=== PATIENT | female | born 2000 | race Caucasian/White ===

== ENCOUNTER 2023-04-22 07:43 | Inpatient (IN) ==
[2023-04-22] MEDS ORDERED: PENICILLIN G POTASSIUM 6 MU in DEXTROSE 5% 250 ML IV STA (08:01)
[2023-04-22] MEDS ORDERED: LIDOCAINE 1% LOCAL 20 ML VIAL INFIL PRN (08:01)
[2023-04-22] MEDS ORDERED: OXYTOCIN 30 UNITS/500 ML BAG IV PRN ×2 (08:01)
--- NOTE | 2023-04-22 08:16 | History & Physical Report ---
Date of Service April 22, 2023 Assessment & Plan (1) Encounter for induction of labor: Plan: Siegel bulb fell out last night at 2230. Not currently having any contractions at this time. We will admit to labor and delivery. Start Pitocin at 1 increase by 2 for induction of labor. Started on lactated Ringer's at 125 mL/hour. Anesthesia consulted for epidural. (2) Obesity affecting , antepartum: Plan: We will monitor vital signs throughout delivery. (3) Carrier of group B Streptococcus: Plan: Started on penicillin G. (4) Hypothyroidism during : Plan: On levothyroxine 137 mcg. We will hold and restart after delivery. (5) Idiopathic intracranial hypertension: Plan: On acetazolamide 500 mg twice daily Saw neurology on 04/16/2023, okay for or natural , patient can receive fluids and have a epidural if wanted. No current headaches. We will continue to monitor. Admission and Anticipated Discharge Date Admission Date: April 22, 2023 History of Present Illness Chief Complaint: Induction of labor Primary Care Provider: Sara Celestin, 23 y/o at 39wk 1/7d confirmed via LMP. Here for induction. Complications with this include obesity, hypothyroidism, GBS positive, and intracranial hypertension. Has been attending OB appointments regularly. Currently taking vitamin, levothyroxine, and acetazolamide. Patient had a Siegel bulb placed yesterday. Fell out around 2330 last night. Contractions: none, some "tightening" but no pain. Fluid or Blood loss: none Movement: active Labs - Blood type: A+ - Antibody screen: Negative - HCT/H.2/13.9 - Plt: 286 - Rubella: Immune - VDRL/RPR: Nonreactive - Gonorrhea: Negative - Chlamydia: Negative - HIV: Negative - HbSAg: Negative - GBS: Positive - Glucose tolerance x 2 Allergies Allergy/AdvReac Type Severity Reaction Status Date / Time sulfamethoxazole AdvReac Unknown rash Verified 04/22/23 09:35 [From Bactrim] trimethoprim [From Bactrim] AdvReac Unknown rash Verified 04/22/23 09:35 Home Medications Medication Instructions Recorded Confirmed Type acetazolamide 500 mg 500 mg PO BID 08/14/22 04/22/23 History capsule,extended release prenat.vits,korina,sbw-zurw-qtoia 1 tab PO DAILY 08/14/22 04/22/23 History levothyroxine 137 mcg tablet 137 mcg PO DAILY #30 tabs 12/07/22 04/22/23 Rx Patient History Medical History Headache 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 Idiopathic intracranial hypertension Equivocal 01/2022 CSF findings, recommendation to treat as if pseudotumor per 02/09/22 neurology note (pt on Diomox) Morbid obesity Spinal headache Hx headache after spinal tap (done for idiopathic intracranial hypertension evaluation)- headache lasted for week after spinal tap (did not have medical intervention/blood patch) > had subsequent spinal tap without issue Surgical History H/O wisdom tooth extraction Family History Mother Depression Ilya's thyroiditis Graves disease Father Hypertension Brother Thyroid disorder Social History Smoking Status: Never smoker Second Hand Exposure: No; Do You Dip or Chew Tobacco: No; Tobacco Cessation Education Requested by Patient: No Hx Alcohol Use: No Hx Substance Use: No Preferred Language: Vietnamese Communication Ability: Effective Contact Worker Required: No Beliefs That Will Affect Care: None marital status: marital status details: Ruddy (28) [phone] Current Living Situation: Spouse Current Living Situation Comment: [facility]- current occupational status: employed current occupation: customer service How many Children do You have: 0 Other Information That Helps Us Care for You: No Feels Safe at Home: Yes Safety Concerns: Feels Safe At This Time Do you think of yourself as: straight/heterosexual Gender Identity: Female Assistive Devices: Glasses Review of Systems Denies fever, chills, sweats Denies shortness of breath, difficulty breathing, chest pain, palpitations, chest pressure. Denies breast pain. Denies dysuria. Denies headache or changes in vision. Physical Exam Physical Exam: General: Alert, oriented. No acute distress. Cardiac: Regular rate and rhythm, no murmurs/rubs/gallops. Respiratory: Clear to auscultation bilaterally a/p, no wheezes/rales/rhonchi. No increased work of breathing. Symmetrical chest rise. No respiratory distress. Abdomen: Gravid; categ 1 FHTs; Position: Cephalic presentation Pelvic: Dilation 3cm; Effacement 50; Station -[address] Guzman Lower Extremities: No lower extremity edema or swelling. No deep calf pain. Ho man's negative bilaterally Results & Data Laboratory Results 04/22/23 08:16 Supervising Physician Co-Signing Physician Notes Resident Physician Supervision Note: I interviewed and examined the patient. Discussed with Dr. Velarde and agree with findings and plan as documented in the note. Any exceptions or clarifications are listed here: 23yowf with iup at 39 weeks here for induction secondary to obesity. has essentially been uncomplicated. Testing reassuring. Last ultrasound efw 61%, ac 91%. Plan pit and pcn G. arom and epidural as indicated. fetus category one. anticipate . Documented By: Siri Guzman MD, FACOG Resident Activity Tracking Resident Involvement: Resident Care Provided Care Provided: OB Delivery
[2023-04-22] MEDS: LACTATED RINGER'S 1,000 ML IV PRN ×3 (08:20→19:24)
[2023-04-22 08:30] LABS: Hematocrit (blood only) 33.3 % (37.0-47.0); Hemoglobin 11.8 g/dl (12.0-16.0); Mean Corpuscular Hemoglobin 31.8 pg (25.0-34.0); Mean Corpuscular Hgb Conc 35.4 g/dL (32.0-36.0); Mean Corpuscular Volume 89.8 fL (80.0-100.0); Mean Platelet Volume 10.5 fL (9.4-12.4); Platelet Count 196 K/uL (130-400); RDW Coefficient of Variation 14.6 % (11.5-14.5); RDW Standard Deviation 46.8 fL (36.4-46.3); Red Blood Count 3.71 M/uL (4.20-5.40); White Blood Count 11.65 K/ul (4.8-10.8)
--- NOTE | 2023-04-22 14:21 | Labor Progress Brief Note ---
Date of Service April 22, 2023 Subjective feeling contractions, not uncomfortable Assessment & Plan (1) Encounter for induction of labor: (2) Obesity affecting , antepartum: (3) Encounter for pre-operative examination: Plan continue current management. fetus category one. anticipate . Admission and Anticipated Discharge Date Admission Date: April 22, 2023 Physical Exam Constitutional: WD/WN, vitals as above Psychiatric: A+Ox3, euthymic affect Genitourinary: cx--3/75/-2/post arom--clear toco--q2-3min, pit at 15 efm--130s with mod variability, accels to 160s, no decels Results & Data Vital Signs (Past 12 Hours) Vital Signs Temp Pulse Resp BP 04/22/23 13:57 89 125/71 04/22/23 13:43 89 123/68 04/22/23 13:27 95 H 125/70 04/22/23 13:12 82 122/70 04/22/23 12:57 96 H 123/66 04/22/23 12:41 99 H 121/82 04/22/23 12:30 18 04/22/23 12:30 37.0 C 18 04/22/23 12:27 97 H 126/83 04/22/23 12:12 96 H 130/83 04/22/23 11:43 87 140/77 04/22/23 11:27 78 127/81 04/22/23 11:12 88 126/79 04/22/23 10:58 92 H 132/82 04/22/23 10:42 89 133/81 04/22/23 10:27 85 121/71 04/22/23 10:13 87 115/76 04/22/23 09:56 92 H 136/80 04/22/23 09:42 93 H 132/87 04/22/23 08:29 37.3 C 101 H 18 123/76 04/22/23 08:26 37.3 C 101 H 18 123/76 Coding Level of Care Code None Diagnoses Encounter for induction of labor Z34.90 Obesity affecting , antepartum O99.210 Encounter for pre-operative examination Z01.818
[2023-04-22] MEDS: PENICILLIN G POTASSIUM 3 MU in DEXTROSE 5% 100 ML IV PRN ×3 (14:23→22:23)
[2023-04-22] MEDS ORDERED: BUPIVACAINE 0.25% PF 30 ML VIAL ONE (15:27)
[2023-04-22] MEDS ORDERED: ePHEDrine sulfate 50 MG/ML AMP ONE (15:27)
[2023-04-22] MEDS ORDERED: LIDOCAINE 2%/EPINEPHRINE 1:200,000 20 ML PF ONE (15:27)
[2023-04-22] MEDS ORDERED: fentaNYL citrate PF 100 MCG/2 ML VIAL ONE (15:27)
[2023-04-22] MEDS ORDERED: SODIUM CHLORIDE 0.9% PF INJ 10 ML VIAL ONE (15:27)
[2023-04-22] MEDS ORDERED: fentaNYL 2MCG/ML ROPIVACAINE 1.25MG/ML 100 ML BAG EPI ONE (15:28)
[2023-04-22] MEDS ORDERED: LIDOCAINE 2% MPF LOCAL 5 ML VIAL EPI PRN (15:31)
[2023-04-22] MEDS ORDERED: fentaNYL citrate PF 100 MCG/2 ML VIAL EPI STA (15:31)
[2023-04-22] MEDS ORDERED: ePHEDrine sulfate 50 MG/ML AMP IV PRN (15:31)
[2023-04-22] MEDS ORDERED: LIDOCAINE 2%/EPINEPHRINE 1:200,000 20 ML PF EPI STA (15:31)
[2023-04-22] MEDS ORDERED: BUPIVACAINE 0.25% PF 30 ML VIAL EPI PRN (15:31)
[2023-04-22] MEDS ORDERED: fentaNYL 2MCG/ML ROPIVACAINE 1.25MG/ML 100 ML BAG EPI PRN (15:31)
[2023-04-22] MEDS ORDERED: NALOXONE HCL 0.4 MG/1 ML VIAL/CARP IV PRN (15:31)
[2023-04-22] MEDS ORDERED: SODIUM CHLORIDE 0.9% PF INJ 10 ML VIAL EPI PRN (15:31)
[2023-04-22] MEDS ORDERED: SODIUM CHLORIDE 0.9% PF INJ 10 ML VIAL EPI STA (15:31)
[2023-04-22] MEDS ORDERED: NALBUPHINE HCL INJ 10 MG/ML AMP IV PRN (15:31)
[2023-04-22] MEDS ORDERED: BUPIVACAINE 0.25% PF 30 ML VIAL EPI STA (15:31)
[2023-04-22] MEDS ORDERED: ONDANSETRON INJ 2 MG/ML 2 ML VIAL IV PRN (15:31)
[2023-04-22] MEDS ORDERED: ROPIVACAINE 0.5% PF 5 MG/ML 20 ML VIAL EPI PRN (15:31)
[2023-04-22] MEDS ORDERED: NALOXONE HCL 1 MG in SODIUM CHLORIDE 0.9% 1000ML 1,000 ML IV PRN (15:31)
[2023-04-22] MEDS ORDERED: diphenhydrAMINE 50 MG/ML VIAL IV PRN (15:31)
[2023-04-22] MEDS ORDERED: fentaNYL citrate PF 100 MCG/2 ML VIAL EPI PRN (15:31)
--- NOTE | 2023-04-22 15:34 | Anesthesiology Consultation ---
Date of Service April 22, 2023 Assessment & Plan Chart Review Chart Review: Patient NOT seen in Pre Admission Testing and Acceptable Risk for Labor Epidural Consults Requested none History Height/Weight Height: 5 ft 10 in Weight: 137.438 kg Allergies Allergy/AdvReac Type Severity Reaction Status Date / Time sulfamethoxazole AdvReac Unknown rash Verified 04/22/23 09:35 [From Bactrim] trimethoprim [From Bactrim] AdvReac Unknown rash Verified 04/22/23 09:35 Medications Home Medications Medication Instructions Recorded Confirmed Last Taken acetazolamide 500 mg 500 mg PO BID 08/14/22 04/22/23 04/22/23 06:00 capsule,extended release prenat.vits,korina,wjo-uxmr-henta 1 tab PO DAILY 08/14/22 04/22/23 04/22/23 06:00 levothyroxine 137 mcg tablet 137 mcg PO DAILY #30 tabs 12/07/22 04/22/23 04/22/23 06:00 Active Medications Generic Name Dose Route Start Last Admin Trade Name Freq PRN Reason Stop Dose Admin Acetazolamide 500 mg 04/23/23 09:00 04/24/23 16:24 Acetazolamide 250 Mg Tab PO 05/23/23 08:59 500 mg BID17 LEMUEL Administration Benzocaine 1 appln 04/23/23 05:41 04/23/23 07:48 Benzocaine 20% Aer Spr 82.5 Gm Can EXT 05/23/23 05:40 82.5 appln PRN PRN Administration Perineal Discomfort Calcium Carbonate 500 mg 04/22/23 20:21 04/23/23 06:06 Calcium Carbonate 500 Mg Chewable Tab PO 05/22/23 20:20 500 mg Q4HWA PRN Administration Indigestion Docusate Sodium 100 mg 04/23/23 08:00 04/24/23 21:21 Docusate Sodium 100 Mg Cap PO 05/23/23 07:59 100 mg DAILY@ LEMUEL Administration Famotidine 20 mg 04/23/23 10:00 04/24/23 10:28 Famotidine 20 Mg Tab PO 05/23/23 09:59 20 mg QAM LEMUEL Administration Penicillin G Potassium 3 mu/ 106 mls @ 100 mls/hr 04/22/23 11:02 04/24/23 22:05 Dextrose IV 05/02/23 11:01 Infused Q4H PRN Infusion GBS(+) Until Delivery Oxytocin 30 units in 500 mls @ 333.333 mls/hr 04/23/23 05:41 04/23/23 05:25 Pitocin IV 05/23/23 05:40 59.94 units/hr .Q1H30M PRN 999 mls/hr Bleeding Control Administration Protocol 20 UNITS/HR Ibuprofen 600 mg 04/23/23 05:41 04/24/23 21:21 Ibuprofen 600 Mg Tab PO 05/23/23 05:40 600 mg Q4H PRN Administration Pain/FOSTER/Cramping/Fever Levothyroxine Sodium 137 mcg 04/23/23 06:30 04/25/23 05:36 Levothyroxine Sodium 137 Mcg Tablet PO 05/23/23 06:29 137 mcg DAILYBB LEMUEL Administration Prenat Multivit/Parker/Iron/Folic Ac 1 tab 04/23/23 08:00 04/24/23 07:38 Vitamin 1 Tab PO 05/23/23 07:59 1 tab DAILY@08 LEMUEL Administration Past Medical History Medical History Headache 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 Idiopathic intracranial hypertension Equivocal 01/2022 CSF findings, recommendation to treat as if pseudotumor per 02/09/22 neurology note (pt on Diomox) Morbid obesity Spinal headache Hx headache after spinal tap (done for idiopathic intracranial hypertension evaluation)- headache lasted for week after spinal tap (did not have medical intervention/blood patch) > had subsequent spinal tap without issue Exercise / Class Metabolic Activity II 4-5 Yardwork/Stairs/Walk up hill Past Family History Family History Mother Depression Ilya's thyroiditis Graves disease Father Hypertension Brother Thyroid disorder Past Surgical History Surgical History H/O wisdom tooth extraction Social History Smoking Status: Never smoker Do You Dip or Chew Tobacco: No Hx Alcohol Use: No Alcohol type: wine alcohol intake frequency: holidays/special occasions only Hx Substance Use: No Physical Exam Vital Signs Last Vital Signs Temp 36.7 C 06/29/23 04:30 Pulse 71 04/25/23 04:30 Resp 20 04/25/23 04:30 BP 130/85 04/25/23 04:30 Pulse Ox 99 04/24/23 21:00 O2 Del Method Room Air 04/25/23 04:30 Testing Laboratory Results 04/24/23 06:21 Blood Type A Positive 04/22/23 09:25 Antibody Screen NEGATIVE 04/22/23 09:25
--- NOTE | 2023-04-22 18:07 | Labor Progress Brief Note ---
Date of Service April 22, 2023 Subjective comfortable Assessment & Plan (1) Encounter for induction of labor: (2) 39 weeks gestation of : Plan continue current management. fetus category one. Admission and Anticipated Discharge Date Admission Date: April 22, 2023 Physical Exam Physical Exam: cx--4-5/75/-2 toco--q2-4min, pit at 17 efm--130s with mod variability, accels present, no decels Results & Data Vital Signs (Past 12 Hours) Vital Signs Temp Pulse Resp BP Pulse Ox 04/22/23 18:02 96 H 99 04/22/23 18:01 84 129/61 04/22/23 17:59 18 04/22/23 17:59 18 04/22/23 17:57 86 98 04/22/23 17:52 91 H 98 04/22/23 17:47 89 99 04/22/23 17:48 90 143/74 H 04/22/23 17:42 89 100 04/22/23 17:37 82 98 04/22/23 17:32 90 99 04/22/23 17:30 93 H 115/56 L 04/22/23 17:27 94 H 98 04/22/23 17:22 101 H 99 04/22/23 17:17 98 04/22/23 17:17 98 H 04/22/23 17:17 93 H 115/57 L 04/22/23 17:12 88 98 04/22/23 17:07 85 97 04/22/23 17:02 96 H 99 04/22/23 17:01 36.6 C 91 H 120/59 L 04/22/23 17:00 16 04/22/23 17:00 16 04/22/23 16:57 95 H 98 04/22/23 16:52 98 H 97 04/22/23 16:47 86 97 04/22/23 16:46 94 H 120/58 L 04/22/23 16:42 72 96 04/22/23 16:37 77 97 04/22/23 16:32 86 97 04/22/23 16:27 84 96 04/22/23 16:24 99 H 125/61 04/22/23 16:22 107 H 98 04/22/23 16:21 93 H 127/62 04/22/23 16:17 101 H 97 04/22/23 16:12 82 98 04/22/23 16:13 88 128/60 04/22/23 16:11 89 132/63 04/22/23 16:09 96 H 123/55 L 04/22/23 16:07 94 H 137/62 04/22/23 16:05 93 H 16 134/59 L 04/22/23 16:03 99 H 140/60 04/22/23 16:01 93 H 134/66 04/22/23 15:58 108 H 146/85 H 04/22/23 15:43 103 H 134/80 04/22/23 15:26 85 136/73 04/22/23 14:58 36.8 C 78 18 134/72 04/22/23 14:42 90 129/76 04/22/23 14:20 36.7 C 04/22/23 14:28 83 130/81 04/22/23 13:57 89 125/71 04/22/23 13:43 89 123/68 04/22/23 13:27 95 H 125/70 04/22/23 13:12 82 122/70 04/22/23 12:57 96 H 123/66 04/22/23 12:41 99 H 121/82 04/22/23 12:30 18 04/22/23 12:30 37.0 C 18 04/22/23 12:27 97 H 126/83 04/22/23 12:12 96 H 130/83 04/22/23 11:43 87 140/77 04/22/23 11:27 78 127/81 04/22/23 11:12 88 126/79 04/22/23 10:58 92 H 132/82 04/22/23 10:42 89 133/81 04/22/23 10:27 85 121/71 04/22/23 10:13 87 115/76 04/22/23 09:56 92 H 136/80 04/22/23 09:42 93 H 132/87 04/22/23 08:29 37.3 C 101 H 18 123/76 04/22/23 08:26 37.3 C 101 H 18 123/76 Coding Level of Care Code None Diagnoses Encounter for induction of labor Z34.90 39 weeks gestation of Z3A.39
--- NOTE | 2023-04-22 19:58 | Labor Progress Brief Note ---
Date of Service April 22, 2023 Subjective comfortable Assessment & Plan (1) Encounter for induction of labor: (2) 39 weeks gestation of : Plan iupc placed. monitor mvus , aim for >200. increase pit to max 30 Admission and Anticipated Discharge Date Admission Date: April 22, 2023 Physical Exam Physical Exam: cx--4/75/-2 toco--q3-5, pit at 20 efm--135 with mod variability, accels present, no decels, +scalp stim Results & Data Vital Signs (Past 12 Hours) Vital Signs Temp Pulse Resp BP Pulse Ox 04/22/23 19:52 91 H 100 04/22/23 19:47 105 H 99 04/22/23 19:45 90 130/61 04/22/23 19:42 88 98 04/22/23 19:37 84 99 04/22/23 19:32 87 99 04/22/23 19:30 85 129/61 04/22/23 19:27 87 100 04/22/23 19:22 94 H 99 04/22/23 19:15 16 04/22/23 19:15 36.8 C 16 04/22/23 19:17 93 H 98 04/22/23 19:16 85 125/60 04/22/23 19:12 90 99 04/22/23 19:07 100 H 99 04/22/23 19:02 91 H 98 04/22/23 19:01 92 H 129/69 04/22/23 18:57 88 100 04/22/23 18:52 90 100 04/22/23 18:47 87 99 04/22/23 18:46 80 122/56 L 04/22/23 18:42 88 100 04/22/23 18:37 86 98 04/22/23 18:32 99 04/22/23 18:32 80 04/22/23 18:32 86 131/61 04/22/23 18:27 79 99 04/22/23 18:22 81 100 04/22/23 18:17 94 H 99 04/22/23 18:16 93 H 127/79 04/22/23 18:12 85 99 04/22/23 18:07 80 99 04/22/23 18:02 96 H 99 04/22/23 18:01 84 16 129/61 04/22/23 17:59 18 04/22/23 17:59 18 04/22/23 17:57 86 98 04/22/23 17:52 91 H 98 04/22/23 17:47 89 99 04/22/23 17:48 90 143/74 H 04/22/23 17:42 89 100 04/22/23 17:37 82 98 04/22/23 17:32 90 99 04/22/23 17:30 93 H 115/56 L 04/22/23 17:27 94 H 98 04/22/23 17:22 101 H 99 04/22/23 17:17 98 04/22/23 17:17 98 H 04/22/23 17:17 93 H 115/57 L 04/22/23 17:12 88 98 04/22/23 17:07 85 97 04/22/23 17:02 96 H 99 04/22/23 17:01 36.6 C 91 H 120/59 L 04/22/23 17:00 16 04/22/23 17:00 16 04/22/23 16:57 95 H 98 04/22/23 16:52 98 H 97 04/22/23 16:47 86 97 04/22/23 16:46 94 H 120/58 L 04/22/23 16:42 72 96 04/22/23 16:37 77 97 04/22/23 16:32 86 97 04/22/23 16:27 84 96 04/22/23 16:24 99 H 125/61 04/22/23 16:22 107 H 98 04/22/23 16:21 93 H 127/62 04/22/23 16:17 101 H 97 04/22/23 16:12 82 98 04/22/23 16:13 88 128/60 04/22/23 16:11 89 132/63 04/22/23 16:09 96 H 123/55 L 04/22/23 16:07 94 H 137/62 04/22/23 16:05 93 H 16 134/59 L 04/22/23 16:03 99 H 140/60 04/22/23 16:01 93 H 134/66 04/22/23 15:58 108 H 146/85 H 04/22/23 15:43 103 H 134/80 04/22/23 15:26 85 136/73 04/22/23 14:58 36.8 C 78 18 134/72 04/22/23 14:42 90 129/76 04/22/23 14:20 36.7 C 04/22/23 14:28 83 130/81 04/22/23 13:57 89 125/71 04/22/23 13:43 89 123/68 04/22/23 13:27 95 H 125/70 04/22/23 13:12 82 122/70 04/22/23 12:57 96 H 123/66 04/22/23 12:41 99 H 121/82 04/22/23 12:30 18 04/22/23 12:30 37.0 C 18 04/22/23 12:27 97 H 126/83 04/22/23 12:12 96 H 130/83 04/22/23 11:43 87 140/77 04/22/23 11:27 78 127/81 04/22/23 11:12 88 126/79 04/22/23 10:58 92 H 132/82 04/22/23 10:42 89 133/81 04/22/23 10:27 85 121/71 04/22/23 10:13 87 115/76 04/22/23 09:56 92 H 136/80 04/22/23 09:42 93 H 132/87 04/22/23 08:29 37.3 C 101 H 18 123/76 04/22/23 08:26 37.3 C 101 H 18 123/76 Coding Level of Care Code None Diagnoses Encounter for induction of labor Z34.90 39 weeks gestation of Z3A.39
[2023-04-22] MEDS: CALCIUM CARBONATE 500 MG CHEWABLE TAB PO PRN (21:23)
--- NOTE | 2023-04-23 00:52 | Labor Progress Brief Note ---
Date of Service April 23, 2023 Subjective comfortable Assessment & Plan (1) Encounter for induction of labor: Plan continue current management. fetus category one. making change and mvus for the most part adequate. Admission and Anticipated Discharge Date Admission Date: April 22, 2023 Physical Exam Physical Exam: cx--5-6/90/-2 toco--q2-3min, pit at 29, for the most part the contractions are >200 efm--140s with mod varaibility, accels to 160s, no decels Results & Data Vital Signs (Past 12 Hours) Vital Signs Temp Pulse Resp BP Pulse Ox 04/23/23 00:47 91 H 100 04/23/23 00:45 93 H 140/73 04/23/23 00:42 87 99 04/23/23 00:37 78 99 04/23/23 00:32 102 H 99 04/23/23 00:30 89 134/70 04/23/23 00:27 82 98 04/23/23 00:22 86 97 04/23/23 00:17 81 97 04/23/23 00:15 86 130/64 04/23/23 00:12 78 98 04/23/23 00:07 84 97 04/23/23 00:02 88 98 04/23/23 00:01 94 H 138/72 04/22/23 23:57 92 H 98 04/22/23 23:52 91 H 99 04/22/23 23:47 99 04/22/23 23:47 102 H 04/22/23 23:47 100 H 138/80 04/22/23 23:42 86 98 04/22/23 23:37 94 H 98 04/22/23 23:30 16 04/22/23 23:30 36.9 C 16 04/22/23 23:32 95 H 100 04/22/23 23:31 100 H 142/69 H 04/22/23 23:27 129 H 99 04/22/23 23:22 94 H 99 04/22/23 23:17 89 144/72 H 100 04/22/23 23:12 100 H 100 04/22/23 23:07 99 H 100 04/22/23 23:02 91 H 100 04/22/23 23:01 90 139/80 04/22/23 22:57 94 H 100 04/22/23 22:52 91 H 100 04/22/23 22:47 101 H 139/83 100 04/22/23 22:42 92 H 100 04/22/23 22:37 98 H 100 04/22/23 22:32 91 H 99 04/22/23 22:30 107 H 142/79 H 04/22/23 22:27 96 H 100 04/22/23 22:22 88 99 04/22/23 22:17 92 H 139/87 100 04/22/23 22:12 82 98 04/22/23 22:07 90 99 04/22/23 22:02 94 H 100 04/22/23 22:01 90 131/79 04/22/23 21:57 91 H 100 04/22/23 21:55 16 04/22/23 21:55 36.7 C 16 04/22/23 21:52 85 99 04/22/23 21:47 92 H 100 04/22/23 21:45 90 134/63 04/22/23 21:42 95 H 100 04/22/23 21:37 94 H 99 04/22/23 21:32 91 H 99 04/22/23 21:31 87 131/74 04/22/23 21:27 86 100 04/22/23 21:22 83 100 04/22/23 21:18 88 139/68 04/22/23 21:17 88 100 04/22/23 21:12 87 100 04/22/23 21:07 85 100 04/22/23 21:02 79 100 04/22/23 21:00 76 111/55 L 04/22/23 20:57 80 100 04/22/23 20:52 71 99 04/22/23 20:47 77 98 04/22/23 20:46 74 126/58 L 04/22/23 20:42 78 98 04/22/23 20:37 71 98 04/22/23 20:32 73 98 04/22/23 20:31 75 129/58 L 04/22/23 20:27 75 98 04/22/23 20:22 81 99 04/22/23 20:17 85 121/62 99 04/22/23 20:12 74 97 04/22/23 20:07 72 98 04/22/23 20:02 77 98 04/22/23 20:01 75 126/59 L 04/22/23 19:57 85 100 04/22/23 19:52 91 H 100 04/22/23 19:47 105 H 99 04/22/23 19:45 90 130/61 04/22/23 19:42 88 98 04/22/23 19:37 84 99 04/22/23 19:32 87 99 04/22/23 19:30 85 129/61 04/22/23 19:27 87 100 04/22/23 19:22 94 H 99 04/22/23 19:15 16 04/22/23 19:15 36.8 C 16 04/22/23 19:17 93 H 98 04/22/23 19:16 85 125/60 04/22/23 19:12 90 99 04/22/23 19:07 100 H 99 04/22/23 19:02 91 H 98 04/22/23 19:01 92 H 129/69 04/22/23 18:57 88 100 04/22/23 18:52 90 100 04/22/23 18:47 87 99 04/22/23 18:46 80 122/56 L 04/22/23 18:42 88 100 04/22/23 18:37 86 98 04/22/23 18:32 99 04/22/23 18:32 80 04/22/23 18:32 86 131/61 04/22/23 18:27 79 99 04/22/23 18:22 81 100 04/22/23 18:17 94 H 99 04/22/23 18:16 93 H 127/79 04/22/23 18:12 85 99 04/22/23 18:07 80 99 04/22/23 18:02 96 H 99 04/22/23 18:01 84 16 129/61 04/22/23 17:59 18 04/22/23 17:59 18 04/22/23 17:57 86 98 04/22/23 17:52 91 H 98 04/22/23 17:47 89 99 04/22/23 17:48 90 143/74 H 04/22/23 17:42 89 100 04/22/23 17:37 82 98 04/22/23 17:32 90 99 04/22/23 17:30 93 H 115/56 L 04/22/23 17:27 94 H 98 04/22/23 17:22 101 H 99 04/22/23 17:17 98 04/22/23 17:17 98 H 04/22/23 17:17 93 H 115/57 L 04/22/23 17:12 88 98 04/22/23 17:07 85 97 04/22/23 17:02 96 H 99 04/22/23 17:01 36.6 C 91 H 120/59 L 04/22/23 17:00 16 04/22/23 17:00 16 04/22/23 16:57 95 H 98 04/22/23 16:52 98 H 97 04/22/23 16:47 86 97 04/22/23 16:46 94 H 120/58 L 04/22/23 16:42 72 96 04/22/23 16:37 77 97 04/22/23 16:32 86 97 04/22/23 16:27 84 96 04/22/23 16:24 99 H 125/61 04/22/23 16:22 107 H 98 04/22/23 16:21 93 H 127/62 04/22/23 16:17 101 H 97 04/22/23 16:12 82 98 04/22/23 16:13 88 128/60 04/22/23 16:11 89 132/63 04/22/23 16:09 96 H 123/55 L 04/22/23 16:07 94 H 137/62 04/22/23 16:05 93 H 16 134/59 L 04/22/23 16:03 99 H 140/60 04/22/23 16:01 93 H 134/66 04/22/23 15:58 108 H 146/85 H 04/22/23 15:43 103 H 134/80 04/22/23 15:26 85 136/73 04/22/23 14:58 36.8 C 78 18 134/72 04/22/23 14:42 90 129/76 04/22/23 14:20 36.7 C 04/22/23 14:28 83 130/81 04/22/23 13:57 89 125/71 04/22/23 13:43 89 123/68 04/22/23 13:27 95 H 125/70 04/22/23 13:12 82 122/70 04/22/23 12:57 96 H 123/66 Coding Level of Care Code None Diagnoses Encounter for induction of labor Z34.90
[2023-04-23] MEDS: PENICILLIN G POTASSIUM 3 MU in DEXTROSE 5% 100 ML IV PRN (02:20)
[2023-04-23] MEDS: LACTATED RINGER'S 1,000 ML IV PRN (02:34)
--- NOTE | 2023-04-23 04:12 | Labor Progress Brief Note ---
Date of Service April 23, 2023 Subjective feeling pressure to push with contractions, had just started pushing. Assessment & Plan (1) Encounter for induction of labor: Plan begin second stage. anticipate . fetus category one. Admission and Anticipated Discharge Date Admission Date: April 22, 2023 Physical Exam Physical Exam: c/c/+2 with push toco--q2-3min, pit at 30 efm--140s with mod variability, accels present, early with contractions noted Results & Data Vital Signs (Past 12 Hours) Vital Signs Temp Pulse Resp BP Pulse Ox 04/23/23 04:07 105 H 100 04/23/23 04:02 99 04/23/23 04:02 109 H 04/23/23 04:02 114 H 138/66 04/23/23 03:57 102 H 100 04/23/23 03:52 99 H 100 04/23/23 03:47 89 100 04/23/23 03:46 92 H 140/74 04/23/23 03:42 87 100 04/23/23 03:37 97 H 100 04/23/23 03:32 93 H 100 04/23/23 03:31 92 H 141/96 H 04/23/23 03:27 95 H 100 04/23/23 03:22 95 H 100 04/23/23 03:17 86 100 04/23/23 03:16 83 137/72 04/23/23 03:12 87 100 04/23/23 03:07 84 100 04/23/23 03:02 89 134/79 100 04/23/23 02:57 78 100 04/23/23 02:52 87 100 04/23/23 02:47 96 H 132/60 100 04/23/23 02:42 93 H 99 04/23/23 02:37 93 H 100 04/23/23 02:32 90 100 04/23/23 02:31 79 123/59 L 04/23/23 02:27 78 99 04/23/23 02:22 86 98 04/23/23 02:17 73 129/58 L 98 04/23/23 02:12 64 97 04/23/23 02:07 67 97 04/23/23 02:02 74 97 04/23/23 02:01 77 129/66 04/23/23 01:57 69 97 04/23/23 01:52 72 97 04/23/23 01:47 70 97 04/23/23 01:45 85 132/64 04/23/23 01:42 83 97 04/23/23 01:37 75 97 04/23/23 01:32 75 97 04/23/23 01:30 81 131/64 04/23/23 01:27 80 97 04/23/23 01:22 68 97 04/23/23 01:17 72 97 04/23/23 01:15 76 131/65 04/23/23 01:12 70 97 04/23/23 01:07 79 97 04/23/23 01:05 16 04/23/23 01:05 36.9 C 16 04/23/23 01:02 76 97 04/23/23 01:01 82 134/63 04/23/23 00:57 77 98 04/23/23 00:52 78 97 04/23/23 00:47 91 H 100 04/23/23 00:45 93 H 140/73 04/23/23 00:42 87 99 04/23/23 00:37 78 99 04/23/23 00:32 102 H 99 04/23/23 00:30 89 134/70 04/23/23 00:27 82 98 04/23/23 00:22 86 97 04/23/23 00:17 81 97 04/23/23 00:15 86 130/64 04/23/23 00:12 78 98 04/23/23 00:07 84 97 04/23/23 00:02 88 98 04/23/23 00:01 94 H 138/72 04/22/23 23:57 92 H 98 04/22/23 23:52 91 H 99 04/22/23 23:47 99 04/22/23 23:47 102 H 06 23:47 100 H 138/80 04/22/23 23:42 86 98 04/22/23 23:37 94 H 98 04/22/23 23:30 16 04/22/23 23:30 36.9 C 16 04/22/23 23:32 95 H 100 04/22/23 23:31 100 H 142/69 H 04/22/23 23:27 129 H 99 04/22/23 23:22 94 H 99 04/22/23 23:17 89 144/72 H 100 0626/23 23:12 100 H 100 04/22/23 23:07 99 H 100 04/22/23 23:02 91 H 100 04/22/23 23:01 90 139/80 04/22/23 22:57 94 H 100 04/22/23 22:52 91 H 100 04/22/23 22:47 101 H 139/83 100 04/22/23 22:42 92 H 100 04/22/23 22:37 98 H 100 04/22/23 22:32 91 H 99 04/22/23 22:30 107 H 142/79 H 04/22/23 22:27 96 H 100 04/22/23 22:22 88 99 04/22/23 22:17 92 H 139/87 100 04/22/23 22:12 82 98 04/22/23 22:07 90 99 04/22/23 22:02 94 H 100 04/22/23 22:01 90 131/79 04/22/23 21:57 91 H 100 04/22/23 21:55 16 04/22/23 21:55 36.7 C 16 04/22/23 21:52 85 99 04/22/23 21:47 92 H 100 04/22/23 21:45 90 134/63 04/22/23 21:42 95 H 100 04/22/23 21:37 94 H 99 04/22/23 21:32 91 H 99 04/22/23 21:31 87 131/74 04/22/23 21:27 86 100 04/22/23 21:22 83 100 04/22/23 21:18 88 139/68 04/22/23 21:17 88 100 04/22/23 21:12 87 100 04/22/23 21:07 85 100 04/22/23 21:02 79 100 04/22/23 21:00 76 111/55 L 04/22/23 20:57 80 100 04/22/23 20:52 71 99 04/22/23 20:47 77 98 04/22/23 20:46 74 126/58 L 04/22/23 20:42 78 98 04/22/23 20:37 71 98 04/22/23 20:32 73 98 04/22/23 20:31 75 129/58 L 04/22/23 20:27 75 98 04/22/23 20:22 81 99 04/22/23 20:17 85 121/62 99 04/22/23 20:12 74 97 04/22/23 20:07 72 98 04/22/23 20:02 77 98 04/22/23 20:01 75 126/59 L 04/22/23 19:57 85 100 04/22/23 19:52 91 H 100 04/22/23 19:47 105 H 99 04/22/23 19:45 90 130/61 04/22/23 19:42 88 98 04/22/23 19:37 84 99 04/22/23 19:32 87 99 04/22/23 19:30 85 129/61 04/22/23 19:27 87 100 04/22/23 19:22 94 H 99 04/22/23 19:15 16 04/22/23 19:15 36.8 C 16 04/22/23 19:17 93 H 98 04/22/23 19:16 85 125/60 04/22/23 19:12 90 99 04/22/23 19:07 100 H 99 04/22/23 19:02 91 H 98 04/22/23 19:01 92 H 129/69 04/22/23 18:57 88 100 04/22/23 18:52 90 100 04/22/23 18:47 87 99 04/22/23 18:46 80 122/56 L 04/22/23 18:42 88 100 04/22/23 18:37 86 98 04/22/23 18:32 99 04/22/23 18:32 80 04/22/23 18:32 86 131/61 04/22/23 18:27 79 99 04/22/23 18:22 81 100 04/22/23 18:17 94 H 99 04/22/23 18:16 93 H 127/79 04/22/23 18:12 85 99 04/22/23 18:07 80 99 04/22/23 18:02 96 H 99 04/22/23 18:01 84 16 129/61 04/22/23 17:59 18 04/22/23 17:59 18 04/22/23 17:57 86 98 04/22/23 17:52 91 H 98 04/22/23 17:47 89 99 04/22/23 17:48 90 143/74 H 04/22/23 17:42 89 100 04/22/23 17:37 82 98 04/22/23 17:32 90 99 04/22/23 17:30 93 H 115/56 L 04/22/23 17:27 94 H 98 04/22/23 17:22 101 H 99 04/22/23 17:17 98 04/22/23 17:17 98 H 04/22/23 17:17 93 H 115/57 L 04/22/23 17:12 88 98 04/22/23 17:07 85 97 04/22/23 17:02 96 H 99 04/22/23 17:01 36.6 C 91 H 120/59 L 04/22/23 17:00 16 04/22/23 17:00 16 04/22/23 16:57 95 H 98 04/22/23 16:52 98 H 97 04/22/23 16:47 86 97 04/22/23 16:46 94 H 120/58 L 04/22/23 16:42 72 96 04/22/23 16:37 77 97 04/22/23 16:32 86 97 04/22/23 16:27 84 96 04/22/23 16:24 99 H 125/61 04/22/23 16:22 107 H 98 04/22/23 16:21 93 H 127/62 04/22/23 16:17 101 H 97 04/22/23 16:12 82 98 04/22/23 16:13 88 128/60 04/22/23 16:11 89 132/63 Coding Level of Care Code None Diagnoses Encounter for induction of labor Z34.90
[2023-04-23] MEDS ORDERED: bisacodyL 10 MG SUPP PR PRN (05:41)
[2023-04-23] MEDS ORDERED: ACETAMINOPHEN 325 MG TAB PO PRN (05:41)
[2023-04-23] MEDS ORDERED: HYDROCORTISONE ACETATE 25 MG SUPP PR PRN (05:41)
[2023-04-23] MEDS ORDERED: OXYTOCIN 30 UNITS/500 ML BAG IV PRN (05:41)
[2023-04-23] MEDS ORDERED: DIPHTHERIA/TETANUS/PERTUSSIS Vaccine (Tdap, Age 7+yrs) 0.5mL SYR/VL IM ONE (05:41)
[2023-04-23] MEDS ORDERED: BENZOCAINE 20% AER SPR 82.5 GM CAN EXT PRN (05:41)
[2023-04-23] MEDS ORDERED: oxyCODONE/ACETAMINOPHEN 5mg/325mg TAB PO PRN (05:41)
--- NOTE | 2023-04-23 05:46 | Delivery Summary ---
Vaginal Delivery Summary Date of Service April 23, 2023 Vaginal Delivery Summary and 2nd Degree LAC Pre-operative Diagnosis: at 39 weeks obesity affecting gbs positive. Post-operative Diagnosis: same Procedure: pitocin induction arom epidural iupc second degree laceration and repair EBL: 400cc Anesthesia: epidural Procedure: Patient presented to labor and delivery for induction at 39 weeks for obesity. She had a montoya bulb placed the night before that had fallen out. She was started on pitocin and when in a good contraction pattern, arom for clear fluid. Underwent an epidural. Was slow to progress and iupc placed. Pitocin was titrated to adequate contractions and progressed to c/c/+2. The patient pushed for approximately 90 minutes to deliver a viable female infant in ej position. A tight nuchal cord was clamped and cut on the perineum and the rest of the was then delivered without difficulty. The baby was vigorous. The was placed immediately on the maternal abdomen for drying and attention. The baby was not particularly vigorous and taken to the warmer for evaluation. Cord blood and segment obtained. Placenta delivered spontaneous, intact with a three vessel cord. Cervix/sulci/rectum were intact. A second degree perineal laceration was repaired in the normal standard fashion. Hemostasis obtained with dilute pitocin and fundal massage. Apgars were pending at the time of this note. Mother and baby doing well at the end of the delivery. [facility] [place] Vaginal Delivery Charge Delivery Type Details: and 2nd Degree LAC
[2023-04-23 06:06] LABS: Base Excess Cord Venous Blood -3.5 mEq/L (-7.7-1.9); Cord Venous Blood HCO3 22 mmol/L (18.4-26.8); Cord Venous Blood PCO2 41 mmHg (30.4-57.2); Cord Venous Blood PO2 34 mmHg (14.1-43.3); Cord Venous Blood pH 7.34 (7.20-7.44)
[2023-04-23] MEDS: CALCIUM CARBONATE 500 MG CHEWABLE TAB PO PRN (06:06)
[2023-04-23 06:10] LABS: O2 Saturation Cord Venous Bld < 68.0 % (<68)
[2023-04-23] MEDS: LEVOTHYROXINE SODIUM 137 MCG TABLET PO SCH (07:09)
--- NOTE | 2023-04-23 07:33 | Anesthesia Procedure Note ---
Date of Service April 23, 2023 Anesthesia Post Epidural Note Vital Signs Vital Signs: Temp Pulse Resp BP Pulse Ox 36.9 C 89 16 124/66 100 04/23/23 01:05 04/23/23 07:30 04/23/23 07:15 04/23/23 07:30 04/23/23 05:47 Pain Intensity Abdomen: Pain Intensity: 0 Notes Mental Status: alert / awake / arousable and participated in evaluation Nausea / Vomiting: adequately controlled Pain: adequately controlled Airway Patency, RR, SpO2: stable & adequate BP & HR: stable & adequate Hydration State: stable & adequate Neuraxial Anesthesia: was administered and sensory block is resolving Anesthetic Complications: no major complications apparent Epidural: Removed without complications and With tip intact
[2023-04-23] MEDS: PRENATAL VITAMIN 1 TAB PO SCH (07:44)
[2023-04-23] MEDS: acetaZOLAMIDE 250 MG TAB PO SCH ×2 (07:44→19:06)
[2023-04-23] MEDS: DOCUSATE SODIUM 100 MG CAP PO SCH ×2 (07:44→20:20)
[2023-04-23] MEDS: FAMOTIDINE 20 MG TAB PO SCH (10:19)
[2023-04-24] MEDS: LEVOTHYROXINE SODIUM 137 MCG TABLET PO SCH (06:06)
[2023-04-24 06:38] LABS: Hemoglobin 11.2 g/dl (12.0-16.0)
--- NOTE | 2023-04-24 07:11 | Obstetrical Progress Note ---
Date of Service April 24, 2023 Assessment & Plan (1) state: Recovering normally, will plan d/c home on PPD2 Subjective Ambulation: ambulating normally Voiding: no voiding problems Passing Gas:: Yes Diet Tolerance:: regular diet Lochia:: Small Feeding Type:: bottle feeding Current Pain Level(1-10): 0 Physical Exam Constitutional WD/WN, vitals as above Eyes PERRL, conjunctivae normal, anicteric sclerae ENMT external ear and nose normal, oropharynx normal Neck trachea midline, no thyromegaly Respiratory normal respiratory effort and able to speak in complete sentences; no respiratory distress, no labored breathing and does not use accessory muscles Cardiovascular Rate/Rhythm: regular rate and regular rhythm Extremities: no calf tenderness and no pedal edema Chest (Breasts) Breast: normal inspection of breasts Gastrointestinal (Abdomen) Inspection/Auscultation: abdomen normal to inspection; abdomen not distended Musculoskeletal no cyanosis or clubbing, extremities motor strength 5/5 Skin no rashes, warm and dry Neurologic patellar DTR's 2+ bilat, sensation intact Psychiatric A+Ox3, euthymic affect Genitourinary Speculum/Bimanual Exam: uterus nontender OB Exam Abdomen: + fundal height (at umbilicus) Fundus: + firm Results & Data Vital Signs (Past 12 Hours) Vital Signs Temp Pulse Resp BP O2 Del Method 04/24/23 04:09 97.7 F 76 18 109/73 Room Air 04/23/23 22:52 97.9 F 80 18 116/78 Room Air 04/23/23 19:50 97.7 F 81 18 112/73 Room Air
[2023-04-24] MEDS: DOCUSATE SODIUM 100 MG CAP PO SCH ×2 (07:38→21:21)
[2023-04-24] MEDS: PRENATAL VITAMIN 1 TAB PO SCH (07:38)
[2023-04-24] MEDS: IBUPROFEN 600 MG TAB PO PRN ×3 (07:38→21:21)
[2023-04-24] MEDS: FAMOTIDINE 20 MG TAB PO SCH (10:28)
[2023-04-24] MEDS: acetaZOLAMIDE 250 MG TAB PO SCH ×2 (10:28→16:24)
[2023-04-24] MEDS ORDERED: bisacodyL 5 MG TABEC PO SCH (20:00)
[2023-04-25] MEDS: LEVOTHYROXINE SODIUM 137 MCG TABLET PO SCH (05:36)
--- NOTE | 2023-04-25 07:02 | Obstetrical Progress Note ---
Date of Service <Josef Velarde DO - Last Filed: 04/25/23 07:49> April 25, 2023 Assessment & Plan <Josef Velarde DO - Last Filed: 04/25/23 07:49> (1) state: - Feels well today. Eating well, voiding well, ambulating well. - Pain well controlled with ibuprofen 600mg Q4H PRN - Routine care -- OOB, ambulation, diet progression as tolerated - After discharge will have 6 week follow-up with Dr. Guzman. - Will D/C today. Day #:: 2 <Brigitte Baig MD, FACOG - Last Filed: 04/25/23 08:16> (1) state: Subjective <Josef Velarde DO - Last Filed: 04/25/23 07:49> Ambulation: ambulating normally Voiding: no voiding problems Passing Gas:: Yes Diet Tolerance:: regular diet Lochia:: Small Feeding Type:: bottle feeding Current Pain Level(1-10): 1 Review of Systems Denies fever, chills, sweats Denies shortness of breath, difficulty breathing, chest pain, palpitations, chest pressure. Denies breast pain. Denies dysuria. Denies headache or changes in vision. Physical Exam <Josef Velarde DO - Last Filed: 04/25/23 07:49> General: Alert, oriented. No acute distress. Cardiac: Regular rate and rhythm, no murmurs/rubs/gallops. Respiratory: Clear to auscultation bilaterally a/p, no wheezes/rales/rhonchi. No increased work of breathing. Symmetrical chest rise. No respiratory distress. Abdomen: Soft, nontender, nondistended. Bowel sounds present. Uterus: Uterine fundus firm, palpable 2 cm below umbilicus. Lower Extremities: No lower extremity edema or swelling. No deep calf pain. Ariella's negative bilaterally. Results & Data <Josef Velarde DO - Last Filed: 04/25/23 07:49> Vital Signs (Past 12 Hours) Vital Signs Temp Pulse Resp BP Pulse Ox O2 Del Method 04/25/23 04:30 36.7 C 71 20 130/85 Room Air 04/24/23 21:00 36.4 C L 79 18 114/74 99 Room Air <Brigitte Bagi MD, FACOG - Last Filed: 04/25/23 08:16> Co-Signing Physician Notes Resident Physician Supervision Note: I interviewed and examined the patient. Discussed with Dr. Velarde and agree with findings and plan as documented in the note. Any exceptions or clarifications are listed here: [None] Documented By: Brigitte Baig MD, FACOG Resident Activity Tracking <Josef Velarde, - Last Filed: 04/25/23 07:49> Resident Involvement: Resident Care Provided Care Provided: OB Delivery
[2023-04-25] MEDS: PRENATAL VITAMIN 1 TAB PO SCH (08:27)
[2023-04-25] MEDS: IBUPROFEN 600 MG TAB PO PRN (08:27)
[2023-04-25] MEDS: acetaZOLAMIDE 250 MG TAB PO SCH (08:28)
[2023-04-25] MEDS: DOCUSATE SODIUM 100 MG CAP PO SCH (08:30)
[2023-04-25] MEDS: FAMOTIDINE 20 MG TAB PO SCH (08:31)
== END 2023-04-25 11:05 | disposition home or self-care (01) | DRG 806 ==
LOC: 4S1 07:43 → 4E2 04-23 08:20